=== PATIENT | female | born 1975 | race Two or more races ===

== ENCOUNTER 2019-09-19 12:50 | Emergency (ER) | payer OTHER ==
--- NOTE | 2019-09-19 13:07 | ER Document Report ---
ED Medical Screen (RME) - General Chief Complaint: Abscess Stated Complaint: ABSCESS Time Seen by Provider: 09/19/19 13:02 Primary Care Provider: PERCY HERMOSILLO MD [Primary Care Provider] - Follow up as needed Mode of Arrival: Ambulatory Information source: Patient Notes: 44-year-old female presented to ED for Bartholin cyst to the left labia. She states she just noticed it yesterday but it is increased in size overnight. Patient is alert oriented respirations regular nonlabored speaking in full sentences. States she has not had 1 of these in the past this is her first time. Patient states last menstrual period started September 08 and just went off Tuesday. Patient does have a red swollen area to the left labia and it will need a I&D. I have greeted and performed a rapid initial assessment of this patient. A comprehensive ED assessment and evaluation of the patient, analysis of test results and completion of medical decision making process will be conducted by an additional ED providers. TRAVEL OUTSIDE OF THE [place] IN LAST 30 DAYS: No - Related Data Allergies/Adverse Reactions: No Known Allergies Allergy (Verified 02/15/19 16:55) Past Medical History Pulmonary Medical History: Reports: Hx Asthma Neurological Medical History: Reports: Hx Migraine Renal/ Medical History: Denies: Hx Peritoneal Dialysis GI Medical History: Past Surgical History: Reports: Hx Gynecologic Surgery, Hx Oral Surgery - [place] teeth removed, Hx Tubal Ligation - Immunizations Immunizations up to date: Yes Hx Diphtheria, Pertussis, Tetanus Vaccination: Yes Physical Exam - Vital signs Vitals: Temp Pulse Resp BP Pulse Ox 98.3 F 87 18 149/87 H 95 09/19/19 12:52 09/19/19 12:52 09/19/19 12:52 09/19/19 12:52 09/19/19 12:52 Course - Vital Signs Vital signs: Temp Pulse Resp BP Pulse Ox 98.3 F 87 18 149/87 H 95 09/19/19 12:52 09/19/19 12:52 09/19/19 12:52 09/19/19 12:52 09/19/19 12:52 Doctor's Discharge - Discharge Referrals: PERCY HERMOSILLO MD [Primary Care Provider] - Follow up as needed
[2019-09-19] MEDS ORDERED: LIDOCAINE 1% INJ-PF (10 MG/ML) 30 ML SDV INJ ONE (14:25)
--- NOTE | 2019-09-19 14:25 | ER Document Report ---
ED Skin Rash/Insect Bite/Abscs - General Chief Complaint: Vaginal Pain Stated Complaint: ABSCESS Time Seen by Provider: 09/19/19 13:02 Primary Care Provider: PERCY HERMOSILLO MD [Primary Care Provider] - Follow up as needed Mode of Arrival: Ambulatory Information source: Patient, [facility] Records Notes: 44-year-old female patient comes emergency room with a left labial abscess that started yesterday. There is no fever. TRAVEL OUTSIDE OF THE [place] IN LAST 30 DAYS: No - Related Data Allergies/Adverse Reactions: No Known Allergies Allergy (Verified 09/19/19 13:03) Past Medical History - General Information source: Patient, [facility] Records - Social History Smoking Status: Never Smoker Cigarette use (# per day): No Chew tobacco use (# tins/day): No Smoking Education Provided: No Frequency of alcohol use: None Drug Abuse: None Occupation: [employer] Lives with: Family Family History: DM, Hypertension, Other - Lupus, enlarged heart Patient has suicidal ideation: No Patient has homicidal ideation: No Pulmonary Medical History: Reports: Hx Asthma Neurological Medical History: Reports: Hx Migraine GI Medical History: Past Surgical History: Reports: Hx Oral Surgery - [place] teeth removed, Hx Tubal Ligation - Immunizations Immunizations up to date: Yes Hx Diphtheria, Pertussis, Tetanus Vaccination: Yes Review of Systems - Review of Systems Constitutional: No symptoms reported EENT: No symptoms reported Cardiovascular: No symptoms reported Respiratory: No symptoms reported Gastrointestinal: No symptoms reported Genitourinary: No symptoms reported Female Genitourinary: See HPI Musculoskeletal: No symptoms reported Skin: No symptoms reported Hematologic/Lymphatic: No symptoms reported Neurological/Psychological: No symptoms reported Physical Exam - Vital signs Vitals: Temp Pulse Resp BP Pulse Ox 98.3 F 87 18 149/87 H 95 09/19/19 12:52 09/19/19 12:52 09/19/19 12:52 09/19/19 12:52 09/19/19 12:52 Interpretation: Normal - General General appearance: Appears well, Alert In distress: None - HEENT Head: Normocephalic, Atraumatic Eyes: Normal Pupils: PERRL - Respiratory Respiratory status: No respiratory distress - Cardiovascular Rhythm: Regular - Abdominal Inspection: Normal - Genitourinary External exam: Other - Left inferior labial cystic swelling, some erythema, very tender, starting to point. Physical exam is consistent with either a sebaceous cyst or infected hair follicle. Medial labial aspect is uninvolved. - Back Back: Normal - Extremities General upper extremity: Normal inspection General lower extremity: Normal inspection - Neurological Neuro grossly intact: Yes - Psychological Associated symptoms: Normal affect, Normal mood - Skin Skin Temperature: Warm Skin Moisture: Dry Skin Color: Normal Course - Re-evaluation Re-evalutation: 09/19/19 16:53 PROCEDURE: The left labia majora cystic area was prepped with Shur-Clens. The skin and subcutaneous tissue was anesthetized using 6 mL's 1% lidocaine local. The cystic mass was incised with a #11 blade. A small cavity was found, only minimal amount of sebaceous type material without any real purulence. There was no sebaceous cyst wall found. The cavity area was probed with a mosquito clamp, and the client was used to pick at the brown of the cavity and try to disrupt any cystic wall components if present. The cavity was irrigated with 10 mL's of normal saline. The cavity was packed with quarter inch iodoform gauze. - Vital Signs Vital signs: Temp Pulse Resp BP Pulse Ox 98.3 F 87 18 149/87 H 100 09/19/19 12:52 09/19/19 12:52 09/19/19 12:52 09/19/19 12:52 09/19/19 14:40 Discharge - Discharge Clinical Impression: Abscess of labia majora Condition: Stable Disposition: HOME, SELF-CARE Additional Instructions: Abscess You have an abscess (boil). This a pus-forming infection, usually due to staph. Some boils may be left to drain on their own, but most require lancing. From the time the tender lump first appears, it may be three or four days before the abscess is ready to avis. Local heat and rest help at this stage of treatment. An antibiotic may prevent spread of the infection. Once the abscess is opened, packing may be placed into it. This is done so pus is not sealed inside by premature closure of the cavity. The packing will be removed at your follow-up visit or you may be advised to remove it yourself at home. Sometimes this packing must be replaced a few times during healing. The wound will heal with surprisingly little scar. Depending on the size and location of an abscess, healing can take one to four weeks. Antibiotics may be prescribed, but are usually not necessary after an abscess has been drained. If you develop fever, chilling, worsening pain, or increasing swelling in the area, call the doctor or return immediately. Take the medication as prescribed. Soak in a warm tub for comfort, but try not to disturb the gauze packing. Remove the gauze packing in 2 days, then try to keep the wound open by probing it with a Q-tip dipped in peroxide several times daily. Return to the emergency room if any problems. RETURN TO THE EMERGENCY ROOM IF ANY NEW OR WORSENING SYMPTOMS. Prescriptions: Doxycycline Hyclate 100 mg PO BID #10 tablet. Oxycodone HCl/Acetaminophen [Percocet 5-325 mg Tablet] 1 tab PO ASDIR PRN #12 tablet PRN Reason: Forms: Return to Work Referrals: PERCY HREMOSILLO MD [Primary Care Provider] - Follow up as needed
[2019-09-19] MEDS ORDERED: FENTANYL CITRATE INJ/PF 100 MCG/2 ML AMPUL IM ONE (14:26)
== END 2019-09-19 16:23 | disposition home or self-care (01) ==
LOC: ER 12:50
DX: N76.4 Abscess of vulva (principal); J45.909 Unspecified asthma, uncomplicated
CPT/HCPCS: 99283; 96372; 81025; 56405; A6266; J3010; J3490